=== PATIENT | male | born 1965 | race Caucasian/White ===

== ENCOUNTER 2017-01-01 07:14 | Day surgery (SDC) | payer BC ==
[~2017-01-01] VITALS: Ht 165.1 cm; Wt 79.4 kg
[2017-01-01] VITALS (9 sets, daily range): BP systolic 104–120; BP diastolic 63–83
[~2017-01-01 07:14] MED LIST: LOPRESSOR25 M1 ORAL; WELLBUTRIN SR150 M1 PO
[2017-01-01] MEDS ORDERED: SEROQUEL50 MG ORAL (07:15)
[2017-01-01] MEDS ORDERED: CYCLOBENZAPRINE10 MG ORAL (07:15)
[2017-01-01] MEDS ORDERED: ZYRTEC10 M3 ORAL (07:15)
[2017-01-01] MEDS ORDERED: BENADRYL25 M3 PO (07:15)
[2017-01-01] MEDS ORDERED: PROZAC20 MG ORAL (07:15)
[2017-01-01] MEDS ORDERED: arthritis med PO (07:15)
[2017-01-01] MEDS ORDERED: LR 1000ml ONE (07:30)
[2017-01-01] MEDS ORDERED: Propofol 200mg/20ml IV ONE (07:30)
[2017-01-01] MEDS ORDERED: Lidocaine 1% MPF 10mg/ml 5ml ONE (07:30)
[2017-01-01] MEDS ORDERED: LR 1000ml 1,000 ML IVLG SCH (07:34)
--- NOTE | 2017-01-01 07:41 | Pre-Procedure Note/Attestation ---
Pre-Procedure Note/Attestation Complete Prior to Procedure Planned Procedure: not applicable Procedure Narrative: colon Indications for Procedure Pre-Operative Diagnosis: ulcerative colitis , proctitis, BRB Attestation I attest that I discussed the nature of the procedure; its benefits; risks and complications; and alternatives (and the risks and benefits of such alternatives ), prior to the procedure, with the patient (or the patient's legal international account representative). I attest that, if there was a reasonable possibility of needing a blood transfusion, the patient (or the patient's legal international account representative) was given the [facility] standardized written summary, pursuant to the [employer] Blood Safety Act ([place] Health and Safety Code # 1645, as amended). I attest that I re-evaluated the patient just prior to the surgery and that there has been no change in the patient's H&P, except as documented below: PHYLLIS HIGH Jan 01, 2017 07:41
--- NOTE | 2017-01-01 07:41 | Pre-Procedure Note/Attestation ---
Pre-Procedure Note/Attestation Complete Prior to Procedure Planned Procedure: not applicable Procedure Narrative: colon Indications for Procedure Pre-Operative Diagnosis: ulcerative colitis , proctitis, BRB Attestation I attest that I discussed the nature of the procedure; its benefits; risks and complications; and alternatives (and the risks and benefits of such alternatives ), prior to the procedure, with the patient (or the patient's legal risk control field representative). I attest that, if there was a reasonable possibility of needing a blood transfusion, the patient (or the patient's legal risk control field representative) was given the [facility] standardized written summary, pursuant to the [employer] Blood Safety Act ([place] Health and Safety Code # 1645, as amended). I attest that I re-evaluated the patient just prior to the surgery and that there has been no change in the patient's H&P, except as documented below: PHYLLIS HIGH Jan 01, 2017 07:41
--- NOTE | 2017-01-01 07:41 | Pre-Procedure Note/Attestation ---
Pre-Procedure Note/Attestation Complete Prior to Procedure Planned Procedure: not applicable Procedure Narrative: colon Indications for Procedure Pre-Operative Diagnosis: ulcerative colitis , proctitis, BRB Attestation I attest that I discussed the nature of the procedure; its benefits; risks and complications; and alternatives (and the risks and benefits of such alternatives ), prior to the procedure, with the patient (or the patient's legal financial service representative). I attest that, if there was a reasonable possibility of needing a blood transfusion, the patient (or the patient's legal financial service representative) was given the [facility] standardized written summary, pursuant to the Bear Marcus Blood Safety Act ([place] Health and Safety Code # 1645, as amended). I attest that I re-evaluated the patient just prior to the surgery and that there has been no change in the patient's H&P, except as documented below: PHYLLIS HIGH Jan 01, 2017 07:41
[2017-01-01] MEDS ORDERED: fentaNYL 100 mcg/2 mL IV PRN (07:45)
[2017-01-01] MEDS ORDERED: DiphenhydrAMINE 50mg/ml Inj IVP PRN (07:45)
[2017-01-01] MEDS ORDERED: Atropine Inj 1mg/10ml Syr IV PRN (07:45)
[2017-01-01] MEDS ORDERED: Midazolam 2mg/2ml Inj IVP PRN (07:45)
--- NOTE | 2017-01-01 07:54 | Anethesia Preoperative Eval ---
Anesthesia Pre-op PMH/ROS General Date of Evaluation: Jan 01, 2017 Time of Evaluation: 07:20 Anesthesiologist: ying ASA Score: ASA 3 Mallampati Score Class I : Soft palate, uvula, fauces, pillars visible Class II: Soft palate, uvula, fauces visible Class III: Soft palate, base of uvula visible Class IV: Only hard plate visible Mallampati Classification: Class II Surgeon: renata Diagnosis: proctitis Surgical Procedure: colonoscopy Anesthesia History: none Family History: no anesthesia problems Allergies: Coded Allergies: PENICILLINS (Verified Allergy, Intermediate, rash , 01/01/17) YEAST (Verified Allergy, Intermediate, break out , 01/01/17) Uncoded Allergies: chocolate (Allergy, Intermediate, break out , 01/01/17) Medications: see eMAR Past Medical History Cardiovascular: Reports: HTN Pulmonary: Reports: asthma Neurologic/Psychiatric: Reports: depression/anxiety Anesthesia Pre-op Phys. Exam Physician Exam Last Vital Signs Date Time Temp Pulse Resp B/P (MAP) Pulse Ox O2 Delivery O2 Flow Rate FiO2 01/01/17 07:16 98.6 85 19 118/83 98 Room Air Constitutional: NAD Neurologic: CN 2-12 intact Cardiovascular: RRR Respiratory: CTA Gastrointestinal: S/NT/ND Airway Exam Mallampati Score: Class II MO: full Neck: supple TMD: 2fb ROM: full Teeth: intact Anesthesia Pre-op A/P Risk Assessment & Plan Assessment: asa3 Plan: mac Status Change Before Surgery: No Pre-Antibiotics Drug: SILVANA Echavarria Jan 01, 2017 07:54
--- NOTE | 2017-01-01 08:50 | Short Stay Surgery H&P ---
History of Present Illness History of Present Illness Chief Complaint see H&P typed HPI Hemant Goodson is a 51 year old male who was admitted on for Colitis Patient History Allergies: Coded Allergies: PENICILLINS (Verified Allergy, Intermediate, rash , 01/01/17) YEAST (Verified Allergy, Intermediate, break out , 01/01/17) Uncoded Allergies: chocolate (Allergy, Intermediate, break out , 01/01/17) PAST MEDICAL HISTORY: Past Surgeries: Social History: Medication History Scheduled Bupropion HCl (Wellbutrin Sr), 75 MG PO DAILY, (Reported) Cetirizine Hcl (Zyrtec), 10 MG ORAL DAILY, (Reported) Cyclobenzaprine Hcl* (Flexeril*), 10 MG ORAL NEEDED, (Reported) Diphenhydramine HCl (Benadryl), 25 MG PO NEEDED, (Reported) Fluoxetine Hcl* (Prozac*), 20 MG ORAL DAILY, (Reported) Metoprolol Tartrate (Metoprolol Tartrate), 25 MG ORAL DAILY, (Reported) Quetiapine Fumarate (Seroquel), 10 MG ORAL NEEDED, (Reported) [arthritis med], Unknown Dose PO DAILY, (Reported) Physical Exam Vital Signs Last Vital Signs Date Time Temp Pulse Resp B/P (MAP) Pulse Ox O2 Delivery O2 Flow Rate FiO2 01/01/17 07:16 98.6 85 19 118/83 98 Room Air Plan Attestation Are the patient's medical conditions optimized for surgery? PHYLLIS HIGH Jan 01, 2017 08:50
--- NOTE | 2017-01-01 08:52 | Endoscopy Procedure Note ---
Endoscopy Procedure Note Indication for Procedure: UC Operative Findings/Diagnosis: proctitis and cecitis Specimen: yes Pt Tolerated Procedure Well: Yes Estimated Blood Loss: none Anesthesiologist: Mabel vargas Anesthesia: MAC Medication Given: see anesthesia record Implant(s) used?: No 50 yrs or older w/o bx or poly: Not Applicable 10yrs. F/U not recommended: Not Applicable If not recommended, why?: PHYLLIS HIGH Jan 01, 2017 08:52
--- NOTE | 2017-01-01 08:53 | Brief Operative Note ---
Immediate Post Operative Note Operative Note Chief Complaint: UC Pre-op Diagnosis: ulcerative colitis , proctitis, BRB Procedure: colon , Bx Post-op Diagnosis: cecal infllammation around appendix, normal TI, ulcerative protitis, mild distal sigmoid inflammation Surgeon: renata Anesthesiologist: daniel vargas Anesthesia: MAC Specimen: yes Complications: none Condition: stable Fluids: see ansethesia Estimated Blood Loss: none Drains: none Implant(s) used?: No PHYLLIS HIGH Jan 01, 2017 08:53
--- NOTE | 2017-01-01 09:32 | Immediate Post-Op Evaluation ---
Immediate Post-Op Evalulation Immediate Post-Op Evalulation Procedure: colonoscopy Date of Evaluation: Jan 01, 2017 Time of Evaluation: 08:47 IV Fluids: 450ml lr Blood Products: none Estimated Blood Loss: negligible Blood Pressure Systolic: 107 Blood Pressure Diastolic: 76 Pulse Rate: 77 Respiratory Rate: 18 O2 Sat by Pulse Oximetry: 98 Temperature (Fahrenheit): 97.6 Pain Score (1-10): 0 Nausea: No Vomiting: No Complications none Patient Status: awake, reacts, patent Hydration Status: adequate Drug: SILVANA Echavarria Jan 01, 2017 09:32
--- NOTE | 2017-01-01 09:44 | 48 Hour Post Anesthesia Eval ---
Post Anesthesia Evaluation Procedure: colonoscopy Date of Evaluation: Jan 01, 2017 Time of Evaluation: 09:43 Blood Pressure Systolic: 111 0: 77 Pulse Rate: 76 Respiratory Rate: 18 Temperature (Fahrenheit): 97.6 O2 Sat by Pulse Oximetry: 99 Airway: patent Nausea: No Vomiting: No Pain Intensity: 0 Hydration Status: adequate Cardiopulmonary Status: stable Mental Status/LOC: patient returned to baseline Post-Anesthesia Complications: none Follow-up care needed: N/A SILVANA WARNER Jan 01, 2017 09:44
--- NOTE | 2017-01-04 08:31 | Procedure Note ---
DATE OF PROCEDURE: 01/01/2017 PROCEDURE: Colonoscopy with biopsy. SURGEON: Rosalio Lazo M.D. ANESTHESIA: Please see the separate anesthesiologist notes for details. PRE-ENDOSCOPIC DIAGNOSIS: History of mucoid stools and hematochezia. POST-ENDOSCOPIC DIAGNOSES: 1. Inflammatory changes seen around the appendix, status post biopsy. 2. 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 DESCRIPTION OF PROCEDURE: The procedures, its risks, indications, alternatives, and possible complications including, but not limited to bleeding, infection, perforation, , and anesthesia complications were explained to the patient and informed consent was obtained. The patient was then sedated in the left lateral decubitus position. A rectal exam was done, which was unremarkable. The colonoscope was then introduced into the rectum and advanced 15 cm into the terminal ileum. The colonoscope was then gradually withdrawn and the mucosa examined carefully. The terminal ileum mucosa was normal. Around the appendix, however, there was a 2 cm diameter area of inflammatory changes, erosion, and erythema. This area was biopsied and sent to pathology for review. Thereafter, random biopsy of the ascending colon, transverse and descending colon and sigmoid areas were all sent to pathology in separate bottles. These areas all looked normal except for the rectal area where there was ulcerative proctitis with inflammatory changes, ulcerations, erythema, and fibrosis seen up to about 10 cm marissa. The colonoscope was removed and the patient was sent to recovery in good condition. COMPLICATIONS: None. ASSESSMENT: This examination is notable for ulcerative proctitis. However, the unusual feature is a patch of inflammation, which is suspicious around the appendix. This finding would raise the possibility of Crohn disease as a cause of the underlying inflammatory bowel disease. Biopsies will evaluate to consider this possibility. The patient was advised to follow up as an outpatient to review all biopsy results and discuss management. RECOMMENDATIONS: 1. Resume oral diet. 2. Follow up biopsy results. 3. Outpatient followup. Rosalio Lazo M.D. DR: Eloise JOB#: [id number] CC: AZIZA
== END 2017-01-01 10:00 | disposition home or self-care (01) ==
LOC: GAS 07:14
DX: K51.20 Ulcerative (chronic) proctitis without complications (principal); Z88.0 Allergy status to penicillin; Z91.018 Allergy to other foods; I10 Essential (primary) hypertension; F32.9 Major depressive disorder, single episode, unspecified; F41.9 Anxiety disorder, unspecified; L40.9 Psoriasis, unspecified; J45.909 Unspecified asthma, uncomplicated
CPT/HCPCS: 45380; J2704; J7120; 94003; 94150

== ENCOUNTER 2017-01-18 08:59 | Outpatient (CLI) | payer BC ==
[~2017-01-18 08:59] MED LIST changes: +BENADRYL25 M3 PO; +CYCLOBENZAPRINE10 MG ORAL; +PROZAC20 MG ORAL; +SEROQUEL50 MG ORAL; +ZYRTEC10 M3 ORAL; +arthritis med PO
[2017-01-18 09:48] VITALS: BP 111/80
--- NOTE | 2017-01-18 13:14 | GI Initial Consult Note ---
History of Present Illness General Date patient seen: Jan 18, 2017 Time patient seen: 09:00 Referring physician: EDGAR GRANADOS Reason for Consultation: [facility]BCE Present Illness HPI 51 year old male referred by Dr. Granados for further evaluation of colits via SBCE. Patient presents today with no GI complaints. No signs of abuse or neglect. Patient is not fall risk. Denies any unintentional weight loss or changes in dietary habits. Had recent colonoscopy on 01/01/17, see summary below. DATE OF PROCEDURE: 01/01/2017 PROCEDURE: Colonoscopy with biopsy. SURGEON: Rosalio Lazo M.D. POST-ENDOSCOPIC DIAGNOSES: 1. Inflammatory changes seen around the appendix, status post biopsy. 2. 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 Home Meds Reported Medications Quetiapine Fumarate (SEROQUEL) 50 Mg Tablet, 10 MG ORAL NEEDED, #15 TAB 0 Refills 01/01/17 Cetirizine Hcl (ZYRTEC) 10 Mg Capsule, 10 MG ORAL DAILY, #30 CAP 0 Refills 01/01/17 Diphenhydramine HCl (Benadryl) 25 Mg Capsule, 25 MG PO NEEDED, CAP 01/01/17 Cyclobenzaprine Hcl* (FLEXERIL*) 10 Mg Tablet, 10 MG ORAL NEEDED, TAB 01/01/17 [arthritis med] No Conflict Check, PO DAILY 01/01/17 Fluoxetine Hcl* (PROZAC*) 20 Mg Capsule, 20 MG ORAL DAILY, CAP 01/01/17 Bupropion HCl (Wellbutrin Sr) 150 Mg Tablet.er, 75 MG PO DAILY, TAB 01/01/17 Metoprolol Tartrate (Metoprolol Tartrate) 25 Mg Tablet, 25 MG ORAL DAILY, TAB 01/01/17 Med list reviewed/reconciled: Yes Allergies: Coded Allergies: PENICILLINS (Verified Allergy, Intermediate, rash , 01/01/17) YEAST (Verified Allergy, Intermediate, break out , 01/01/17) Uncoded Allergies: chocolate (Allergy, Intermediate, break out , 01/01/17) Patient History History Provided By: Patient, Medical Record PM Narrative Colitis Pertinent Family History: none Social History: Denies: smoking, alcohol use, drug use, other Review of Systems All Other Systems: negative except mentioned in HPI Physical Exam Vital Signs Date Time Temp Pulse Resp B/P (MAP) Pulse Ox O2 Delivery O2 Flow Rate FiO2 01/18/17 09:48 98.2 83 16 111/80 Sp02 EP Interpretation: reviewed, normal General Appearance: well appearing, no apparent distress, alert Head: normocephalic EENT: PERRL/EOMI, normal ENT inspection Neck: supple Respiratory: normal breath sounds, no respiratory distress Cardiovascular: normal rate Gastrointestinal: normal inspection, non tender, soft, normal bowel sounds, non -distended Rectal: deferred Genitourinary: deferred Musculoskeletal: normal inspection, back normal Neurologic: normal inspection, alert, oriented x3, responsive Psychiatric: normal inspection, judgement/insight normal, memory normal Skin: normal inspection, normal color, no rash, warm/dry, palpation normal, well hydrated Lymphatic: normal inspection, no adenopathy GI: Plan Problems: (1) Colitis (2) Encounter for diagnostic endoscopy Plan s/p colonoscopy 01/01/17, see pathology report. RECOMMENDATIONS: SBCE today RTC tomorrow for equipment return Discussed with Dr. Almanzar. Thank you for this patient referral, we will follow. Ruth Lester N.P. Jan 18, 2017 13:14
--- NOTE | 2017-01-26 16:45 | Procedure Note ---
DATE OF PROCEDURE: 01/18/2017 SURGEON: Gino Almanzar M.D. PROCEDURE: Capsule endoscopy. REASON FOR PROCEDURE: The procedure, risks, benefits, and possible consequences, including hemorrhage, aspiration, perforation and infection, and alternative treatments, were explained to the patient/legal guardian by Dr. Gino Almanzar and the patient/legal guardian understood and accepted these risks. DESCRIPTION OF PROCEDURE: After informed consent was obtained, the patient swallowed the camera. Camera has spent about 15 minutes in the stomach and then entered the small intestine and at end of the study, the camera entered the colon. Quality of prep overall was very good except for few areas, which was covered with greenish bubbles and the terminal ileum was covered with some semisolid material making examination of these areas a little bit limited. The patient had multiple gastric erosions. In the small bowel, there was no evidence of active bleeding, no arteriovenous malformations, no ulcerations, and no mass was seen. There is no evidence of any source of anemia at this time except for multiple gastric erosions. SUMMARY OF FINDINGS: It is a good capsule endoscopy examination except for some areas, which was covered with greenish bubbles or solid material in the terminal ileum. Otherwise, the rest of the exam quality was good. The patient had multiple gastric erosions and some minimal amount of old blood in the stomach. No evidence of any obvious active bleeding in the small intestine. The patient to follow up with Dr. Rosalio Lazo, his physician extender, for further followup. I want to thank Dr. Lazo for this kind referral. Gino Almanzar M.D. DR: MAKI JOB#: [id number] CC: Rosalio Lazo M.D.; Fax#: [phone]
== END 2017-01-18 09:45 | disposition home or self-care (01) ==
LOC: PAN 08:59
DX: K52.9 Noninfective gastroenteritis and colitis, unspecified (principal); Z88.0 Allergy status to penicillin